=== PATIENT | male | born 1945 | race Caucasian/White ===

== ENCOUNTER 2024-11-11 16:01 | Emergency (ER) | payer MEDICARE, BC ==
[2024-11-11] MEDS: Lidocaine/Epineph/Tetracaine 3 ML Syringe TOP ONE (16:52)
[2024-11-11] MEDS: Acetaminophen 325 MG Tab PO ONE (17:32)
[2024-11-11 18:00] LABS: APPEARANCE,URINE CLEAR (Clear); BILIRUBIN,URINE NEGATIVE (Negative); COLOR,URINE YELLOW (Yellow); GLUCOSE,URINE NEGATIVE (Negative); KETONES,URINE NEGATIVE (Negative); LEUKOCYTE ESTERASE,URINE NEGATIVE (Negative); NITRITE,URINE NEGATIVE (Negative); OCCULT BLOOD,URINE NEGATIVE (Negative); PROTEIN,URINE NEGATIVE (Negative)
== END 2024-11-11 19:58 | disposition home or self-care (01) ==
LOC: JD.ED 16:01
DX: S01.01XA Laceration without foreign body of scalp, initial encounter (principal); W18.39XA Other fall on same level, initial encounter; Y93.89 Activity, other specified
CPT/HCPCS: 12002; 70450; 81003; 99284; A9270

== ENCOUNTER 2024-12-04 06:39 | Emergency (ER) | payer MEDICARE, BC | END 2024-12-04 08:45 | disposition home or self-care (01) | LOC: JD.ED 06:39 | DX: S01.01XA Laceration without foreign body of scalp, initial encounter (principal); E78.00 Pure hypercholesterolemia, unspecified; I10 Essential (primary) hypertension; Z91.048 Other nonmedicinal substance allergy status; Z88.1 Allergy status to other antibiotic agents; Z79.82 Long term (current) use of aspirin; Z79.899 Other long term (current) drug therapy; W18.39XA Other fall on same level, initial encounter; Y93.89 Activity, other specified | CPT/HCPCS: 12002; 70450; 72125; 99284; A9270; J2003 ==

== ENCOUNTER 2024-12-15 10:53 | Inpatient (IN) | payer MEDICARE, BC ==
[2024-12-15] MEDS ORDERED: Sodium Chloride 0.9% 10 ML Syringe FLUSH PRN (10:55)
[2024-12-15 11:41] LABS: BASOPHILS ABSOLUTE AUTO 0.0 K/mm3 (0.0-0.2); BASOPHILS PERCENT AUTO 0.8 % (0.0-1.0); EOSINOPHILS ABSOLUTE AUTO 0.1 K/mm3 (0.0-0.4); EOSINOPHILS PERCENT AUTO 1.8 % (0.0-6.0); IMMATURE GRAN ABSOLUTE AUTO 0.02 K/mm3 (0.00-0.05); IMMATURE GRAN PERCENT AUTO 0.4 % (0.0-0.4); LYMPHOCYTES ABSOLUTE AUTO 0.9 K/mm3 (1.0-4.8); LYMPHOCYTES PERCENT AUTO 18.7 % (24.0-44.0); MEAN PLATELET VOLUME 9.9 fl (9.4-12.4); MONOCYTES ABSOLUTE AUTO 0.6 K/mm3 (0.0-0.8); MONOCYTES PERCENT AUTO 13.1 % (0.0-8.0); NEUTROPHILS ABSOLUTE AUTO 3.2 K/mm3 (1.8-7.7); NEUTROPHILS PERCENT AUTO 65.2 % (41.0-71.0); NRBC ABSOLUTE 0.00 (0.00-0.02); NRBC PERCENT 0.0 % (0.0-0.2); PLATELET COUNT,PLT 157 K/mm3 (150-400); RED BLOOD CELL COUNT 3.77 M/mm3 (4.52-5.90); WHITE BLOOD CELL COUNT,WBC 4.87 K/mm3 (3.9-11.3)
[2024-12-15 12:09] LABS: INR 1.06
[2024-12-15 12:11] LABS: PTT,PARTIAL THROMBOPLSTIN TIME 25.4 SECONDS (21.7-31.4)
[2024-12-15 12:20] LABS: A/G RATIO 1.1 (1-2); ALANINE AMINOTRANSFERASE,ALT 19.0 U/L (16-63); ASPARTATE AMNIOTRANSFERASE,AST 15.0 U/L (15-37); BILIRUBIN TOTAL 0.7 mg/dL (0.2-1.0); BLOOD UREA NITROGEN,BUN 19.0 mg/dL (7-18); CARBON DIOXIDE,CO2 28.0 mEq/L (21-32); CHLORIDE,CL 106.0 mEq/L (98-107); CREATINE KINASE,CK 77.0 U/L (39-308); CREATININE 1.1 mg/dL (0.7-1.3); EST CRCL DRUG DOSING (CG) 50.91 mL/min; ESTIMATED GFR 68.0 mL/min (>60); GLUCOSE RANDOM 92.0 mg/dL (70-99); POTASSIUM,K 4.3 mEq/L (3.5-5.1); PROTEIN TOTAL,TP 6.6 g/dl (6.4-8.2); SODIUM,NA 142.0 mEq/L (136-145); TROPONIN I HIGH SENSITIVITY 7.0 pg/mL (<=76)
[2024-12-15 13:35] LABS: BASE EXCESS ARTERIAL 2.6 (-2-2.0); BICARBONATE,ARTERIAL 26.2 meq/L (22.0-26.0); O2 SATURATION ARTERIAL 97.9 % (96.0-97.0); PCO2 ARTERIAL 36.0 mmHg (35.0-45.0); PO2 ARTERIAL 74.0 mmHg (80.0-100.0)
[2024-12-15] MEDS: LORazepam 2 MG/ML SDV IVPUSH STA (14:01)
[2024-12-15] MEDS: Ketamine 200 MG/20 ML MDV IVPUSH ONE (14:25)
[2024-12-15 14:33] LABS: APPEARANCE,URINE CLEAR (Clear); GLUCOSE,URINE NEGATIVE (Negative); OCCULT BLOOD,URINE TRACE-INTACT (Negative)
[2024-12-15 14:52] LABS: EPITHELIAL CELLS,URINE 0-5 /hpf (0-5)
[2024-12-15] MEDS ORDERED: Ondansetron 4 MG/2 ML SDV IV PRN (17:44)
[2024-12-15] MEDS ORDERED: Sennosides/Docusate Sodium 50-8.6 MG Tab PO PRN (17:44)
[2024-12-15] MEDS ORDERED: LORazepam 2 MG/ML SDV IVPUSH PRN (17:44)
[2024-12-15] MEDS ORDERED: Naloxone 0.4 MG/ML SDV IVPUSH PRN (17:44)
[2024-12-15] MEDS ORDERED: hydrALAZINE 20 MG/ML SDV IVPUSH PRN (17:47)
[2024-12-15] MEDS ORDERED: Labetalol 100 MG/20 ML MDV IVPUSH PRN (17:47)
[2024-12-16] MEDS: LORazepam 2 MG/ML SDV IVPUSH PRN (14:46)
[2024-12-16] MEDS: Scopalamine 1mg/3day Transdermal Patch TRDERM PRN (17:08)
== END 2024-12-19 16:50 | DRG 884 ==
LOC: JD.ED 10:53 → JD.MS 14:53
PROVIDERS: ADMIT Student in an Organized Health Care Education/Training Program; ATTEND Family Medicine
DX: R41.82 Altered mental status, unspecified (principal); F03.918 Unspecified dementia, unspecified severity, with other behavioral disturbance; F03.94 Unspecified dementia, unspecified severity, with anxiety; Z91.048 Other nonmedicinal substance allergy status; Z88.1 Allergy status to other antibiotic agents; Z66 Do not resuscitate; H26.9 Unspecified cataract; E78.00 Pure hypercholesterolemia, unspecified; I10 Essential (primary) hypertension; I25.10 Atherosclerotic heart disease of native coronary artery without angina pectoris; M54.9 Dorsalgia, unspecified; G89.29 Other chronic pain; F32.A Depression, unspecified; E66.9 Obesity, unspecified; Z68.28 Body mass index [BMI] 28.0-28.9, adult; Z79.899 Other long term (current) drug therapy; Z88.8 Allergy status to other drugs, medicaments and biological substances; Z79.82 Long term (current) use of aspirin
CPT/HCPCS: 36415; 36600; 51701; 70450; 70496; 70498; 71045; 80053; 81001; 82550; 82803; 83690; 83735; 84484; 85025; 85610; 85730; 87040; 93005; 96374; 96375; 99285; C1758; J2060; J3490; A9270-GY; J1650; J2270